=== PATIENT | male | born 1955 | race Caucasian/White ===

== ENCOUNTER 2018-08-04 07:52 | Inpatient (IN) | payer OTHER ==
[2018-08-04] MEDS ORDERED: HYDROmorphone HCL CARPU-JECT 2 MG/1 ML DISP.SYRIN IVPUSH ONE ×2 (08:42→10:46)
[2018-08-04] MEDS ORDERED: HYDROmorphone HCl 2 MG/ML VIAL ONE ×2 (08:53→10:47)
--- NOTE | 2018-08-04 09:00 | PDOC ---
Attending Attestation - Resident Resident Name: Elidia Richardson - ED Attending Attestation I have performed the following: I have examined & evaluated the patient, The case was reviewed & discussed with the resident, I agree w/resident's findings & plan, Exceptions are as noted - HPI HPI: 08/04/18 09:00 62-year-old male with past medical history of hypertension, bilateral hip replacements presents with dislocated right hip. Yesterday, patient reported that his hip dislocated. Started feel some paresthesias. They attempted to reduce the right hip at [facility] but was unsuccessful. The patient was transferred here to his orthopedist, Dr. Kanu Baez, for OR reduction. - Physicial Exam PE: 08/04/18 09:02 GENERAL: Awake, alert, and fully oriented, in no acute distress HEAD: No signs of trauma EYES: EOMI, sclera anicteric, conjunctiva clear ENT: Auricles normal inspection, hearing grossly normal, nares patent, Moist mucosa NECK: Normal ROM, supple EXTREMITIES: RLE: 2+ DP pulse Internally rotated and shortened. Reports subjective parasthesias along the right lower extremity. NEUROLOGICAL: Cranial nerves II through XII grossly intact. Normal speech, SKIN: Warm, Dry, normal turgor, no rashes or lesions noted. - Medical Decision Making 08/04/18 09:03 Vital Signs Temp Pulse Resp BP Pulse Ox 99.2 F 79 16 204/108 H 100 08/04/18 07:54 08/04/18 07:54 08/04/18 07:54 08/04/18 07:54 08/04/18 07:54 Pt with 2+ DP pulses Dislocated R prosthetic hip. To OR for OR reduction by Dr. Kanu Baez Heart Score/ECG Review #1 ECG reviewed & interpreted by me at: 08:10 08/04/18 08:59 NSR 75, no std/festus, normal axis, normal intervals, QTC 480 msec
--- NOTE | 2018-08-04 09:20 | PDOC ---
History of Present Illness - General Chief Complaint: Pain Stated Complaint: RT SIDE HIP DISLOCATION Time Seen by Provider: 08/04/18 08:05 - History of Present Illness Initial Comments: 62 year old male with HTN (non compliant currently) and right hip replacement ( with dislocation a few months a go) presenting with right hip pain and deformity that he believes is dislocated after films and attempted relocation at [facility] earlier today. States that it originally occurred earlier in the day when he attempted to bend over at a steep angle (which he is aware he shouldn't be doing) and felt something "give out" after which he went immediately to the floor, Denies any other pain or trauma. They attempted to reduce the hip in [facility] but were unsuccessful after which they contacted Dr. Baez (his orthopedic surgeon) and had him transferred to our facility for admission and OR reduction. Denies any fevers, chills, nausea, vomiting, skin breakage, or other symptoms. 08/04/18 11:19 Past History - Past Medical History Allergies/Adverse Reactions: Allergies Allergy/AdvReac Type Severity Reaction Status Date / Time No Known Allergies Allergy Verified 08/04/18 07:54 Home Medications: Ambulatory Orders Blood Pressure Kit Med,Large [Blood Pressure Monitor] 1 each MC DAILY #1 kit Chlorthalidone [Hygroton -] 25 mg PO DAILY #30 tablet 08/05/18 COPD: No HTN: Yes - Suicide/Smoking/Psychosocial Hx Smoking History: Never smoked Have you smoked in the past 12 months: No Information on smoking cessation initiated: No Hx Alcohol Use: No Drug/Substance Use Hx: No Review of Systems - Review of Systems Constitutional: No: Chills, Diaphoresis, Fever HEENTM: No: Eye Pain, Blurred Vision Respiratory: No: Cough, Orthopnea, Shortness of Breath Cardiac (ROS): No: Chest Pain, Irregular Heart Rate, Lightheadedness ABD/GI: No: Diarrhea, Nausea, Vomiting : No: Dysuria, Discharge, Frequency Musculoskeletal: Yes: Joint Pain, Muscle Pain Integumentary: No: Bruising, Change in Color, Flushing Neurological: No: Headache, Numbness, Paresthesia Psychiatric: No: Anxiety, Depression Hematologic/Lymphatic: No: Anemia, Blood Clots, Easy Bleeding *Physical Exam - Vital Signs Last Vital Signs Temp Pulse Resp BP Pulse Ox 99.2 F 79 16 204/108 H 100 08/04/18 07:54 08/04/18 07:54 08/04/18 07:54 08/04/18 07:54 08/04/18 07:54 - Physical Exam General Appearance: Yes: Nourished, Appropriately Dressed. No: Apparent Distress HEENT: positive: EOMI, OMAR, Normal ENT Inspection, Normal Voice Neck: positive: Trachea midline, Normal Thyroid, Supple. negative: Tender, Rigid Respiratory/Chest: positive: Lungs Clear, Normal Breath Sounds. negative: Chest Tender, Respiratory Distress, Accessory Muscle Use Cardiovascular: positive: Regular Rhythm, Regular Rate Gastrointestinal/Abdominal: positive: Normal Bowel Sounds, Flat, Soft. negative : Tender Lymphatic: negative: Adenopathy, Tenderness Musculoskeletal: positive: Decreased Range of Motion (right hip with slight shortening and palpable deformity at hip joint. Slightly decreased ROM secondary to pain. ). negative: Normal Inspection Extremity: positive: Normal Capillary Refill, Normal Inspection, Normal Range of Motion Integumentary: positive: Normal Color, Dry, Warm Neurologic: positive: Fully Oriented, Alert, Normal Mood/Affect, Normal Response , Motor Strength 5/5 Moderate Sedation - Procedure Monitoring Vital Signs: Procedure Monitoring Vital Signs Temperature 99.2 F 08/04/18 07:54 Pulse Rate 79 08/04/18 07:54 Respiratory Rate 16 08/04/18 07:54 Blood Pressure 204/108 H 08/04/18 07:54 O2 Sat by Pulse Oximetry (%) 100 08/04/18 07:54 ED Treatment Course - LABORATORY CBC & Chemistry Diagram: 08/05/18 05:30 08/05/18 05:30 - RADIOLOGY Radiology Studies Ordered: Category Date Time Status CHEST PA & LAT [RAD] Stat Radiology 08/04/18 08:46 Ordered HIP & PELVIS-LEFT [RAD] Stat Radiology 08/04/18 08:44 Ordered - Medications Given in the ED: ED Medications Discontinued Medications Generic Name Dose Route Start Last Admin Trade Name Freq PRN Reason Stop Dose Admin Hydromorphone HCl 1 mg 08/04/18 08:42 08/04/18 09:00 Dilaudid Injection - IVPUSH 08/04/18 08:43 1 mg ONCE ONE Administration Medical Decision Making - Medical Decision Making 62 year old male with right hip replacement presenting iwth right hip dislocation with failed attempt at OSH at reduction and need for admission/ OR fixation. I spoke to Popeye Baez who will schedule the procedure under his son Kanu Baez and would like the patient admitted to the hospitalist service. Originally we consulted admitting physician (Dr. Finch) who felt uncomfortable taking the patient and we then got in touch with the hospitalist covering physician who agreed to take the admission. Preop labs/ workup sent and films taken. *DC/Admit/Observation/Transfer Diagnosis at time of Disposition: Hip dislocation, right Qualifiers: Encounter type: initial encounter Qualified Code(s): S73.004A - Unspecified dislocation of right hip, initial encounter - Discharge Dispostion Disposition: HOME Condition at time of disposition: Stable Decision to Admit order Date/Time: Decision to Admit Order Category Date Time Status Decision to Admit to Hospital Routine Admission 08/04/18 08:53 Active - Prescriptions - Referrals - Patient Instructions - Post Discharge Activity
[2018-08-04 09:37] LABS: BASO % 0.3 % (0-2.0); EOS % 0.2 % (0-4.5); HEMATOCRIT 44.1 % (35.4-49); HEMOGLOBIN 15.3 GM/dL (11.7-16.9); LYMPH % 15.4 % (8-40); MCH 33.4 pg (25.7-33.7); MCHC 34.6 g/dl (32.0-35.9); MEAN CELL VOLUME 96.5 fl (80-96); MEAN PLT VOLUME 7.5 fl (7.5-11.1); MONO % 9.4 % (3.8-10.2); NEUT % 74.7 % (42.8-82.8); PLATELET COUNT 263 K/MM3 (134-434); RBC 4.57 M/mm3 (4.00-5.60); RDW 13.3 % (11.9-15.9); WHITE BLOOD COUNT 6.8 K/mm3 (4.0-10.0)
[2018-08-04 09:40] LABS: INR 1.04 (0.83-1.09); PROTHROMBIN TIME (PATIENT) 12.3 SEC (9.7-13.0)
[2018-08-04 09:49] LABS: ALBUMIN 3.9 g/dl (3.4-5.0); ALK PHOS 125 U/L (45-117); ANION GAP 8 MMOL/L (8-16); BILIRUBIN,TOTAL 0.7 mg/dL (0.2-1); BLOOD UREA NITROGEN 6 mg/dL (7-18); CALCIUM 8.5 mg/dL (8.5-10.1); CHLORIDE 103 mmol/L (98-107); CO2 28 mmol/L (21-32); CREATININE 0.7 mg/dL (0.55-1.3); GLUCOSE,RANDOM 98 mg/dL (74-106); POTASSIUM 4.3 mmol/L (3.5-5.1); SGOT/AST 24 U/L (15-37); SGPT/ALT 21 U/L (13-61); SODIUM 139 mmol/L (136-145); TOT PROT 7.2 g/dl (6.4-8.2)
--- NOTE | 2018-08-04 10:27 | EKG ---
Test Reason : Blood Pressure : / mmHG Vent. Rate : 075 BPM Atrial Rate : 075 BPM P-R Int : 176 ms QRS Dur : 098 ms QT Int : 430 ms P-R-T Axes : 011 046 048 degrees QTc Int : 480 ms NORMAL SINUS RHYTHM PROLONGED QT ABNORMAL ECG NO PREVIOUS ECGS AVAILABLE Confirmed by CRISTOPHER JACKSON MD ([id number]) on 08/04/2018 10:27:10 AM Referred By: Confirmed By:CRISTOPHER JACKSON MD
[2018-08-04 12:09] VITALS: BMI 28.4
[2018-08-04] MEDS ORDERED: IBUPROFEN 400 MG TABLET (FP) PO PRN (13:16)
[2018-08-04] MEDS ORDERED: BISACODYL 5 MG TABLET.DR (FP) PO PRN ×2 (13:16→16:03)
[2018-08-04] MEDS ORDERED: morphine SULFATE/PF 30 MG/30 ML *PCA* DISP.SYRIN PCA SCH ×3 (13:30→15:00)
[2018-08-04] MEDS ORDERED: PROPOFOL 20 ML ONE (15:11)
[2018-08-04] MEDS ORDERED: MIDAZOLAM HCL 2 MG/2 ML SINGLE DOSE VIAL ONE (15:11)
[2018-08-04] MEDS ORDERED: SUCCINYLCHOLINE CHLORIDE 200 MG/10 ML VIAL ONE (15:11)
[2018-08-04] MEDS ORDERED: LACTATED RINGERS SOLUTION 1,000 ML IV SCH ×4 (15:45→16:03)
[2018-08-04] MEDS ORDERED: hydrALAZINE HCL 20 MG/ML VIAL ONE (15:48)
[2018-08-04] MEDS ORDERED: hydrALAZINE HCL 20 MG/ML VIAL IVPUSH ONE ×2 (15:49→16:03)
[2018-08-04] MEDS ORDERED: ONDANSETRON 4 MG/2 ML VIAL IVPUSH PRN ×2 (15:54→16:03)
--- NOTE | 2018-08-04 16:02 | PN ---
Progress Note (short form) - Note Progress Note: CONSULTATION 62M p/w closed RIGHT ERASTO dislocation. Pt. reports (+) R hip pain. Hx. of 1 x prior closed right ERASTO dislocation. Pt. has right hip abduction brace at home. No change in PMH, PSH, Family Hx., Social Hx., Medications, Medication Allergies , & ROS. All labs and vitals reviewed. PE: AAO x 3, NAD. Confined to bed d/t inability to ambulate. Right Hip: Short RLE, adducted, internally rotated. NVI distally. 62M p/w closed RIGHT ERASTO dislocation. -Pain control. -DVT PPx: - Mechanical only: IMELDA's, SCD's. -NPO, IVF. -Pre-op for closed reduction right ERASTO under general anaesthesia. -Will follow. Kanu Baez MD (Orthopaedic Surgery).
--- NOTE | 2018-08-04 16:17 | PN ---
Progress Note (short form) - Note Progress Note: CONSULTATION 62M s/p closed reduction RIGHT ERASTO dislocation POD #0. -Pain control. -DVT PPx: - Mechanical only: IMELDA's, SCD's. -Incentive spirometry. -Hip abduction pillow & brace. -PT/OT/Rehab, OOB. -WBAT RLE. -Care per medical hospitalist team. -Discharge: home. -Follow-up w/[facility] outpatient clinic within 1 week of discharge: . Kanu Baez MD (Orthopaedic Surgery).
[2018-08-04] MEDS: oxyCODONE HCL 5 MG TABLET PO PRN ×2 (17:14→23:18)
[2018-08-04] MEDS: ACETAMINOPHEN 325 MG TABLET (FP) PO PRN ×2 (17:15→23:17)
--- NOTE | 2018-08-04 18:08 | HP ---
CHIEF COMPLAINT:hip got displaced PCP: HISTORY OF PRESENT ILLNESS: He is a 62 Y/O M W HTN non adherent to medication, S/P hip replacement complicated with dislocation, He was evaluated by ortho and is now SP closed reduction He was also found to have HTN, states that has been diagnosed couple of years ago and was on meds for couple of months but he stopped them years ago. He states that he had unlimited ET with no cardiopulmonary complains. Also states that had TTE and is aware of the murmur he has. He is also active smoker, 3-4 cig day for 1 year. ER course was notable for: (1) close hip reduction by ortho. Recent Travel: PAST MEDICAL HISTORY: PAST SURGICAL HISTORY: Social History: Smoking: Alcohol: Drugs: Family History: Allergies No Known Allergies Allergy (Verified 08/04/18 07:54) HOME MEDICATIONS: Home Medications Medication Instructions Recorded NK [No Known Home Medication] 08/04/18 REVIEW OF SYSTEMS CONSTITUTIONAL: Absent: fever, chills, diaphoresis, generalized weakness, malaise, loss of appetite, weight change HEENT: Absent: rhinorrhea, nasal congestion, throat pain, throat swelling, difficulty swallowing, mouth swelling, ear pain, eye pain, visual changes CARDIOVASCULAR: Absent: chest pain, syncope, palpitations, irregular heart rate, lightheadedness , peripheral edema RESPIRATORY: Absent: cough, shortness of breath, dyspnea with exertion, orthopnea, wheezing, stridor, hemoptysis GASTROINTESTINAL: Absent: abdominal pain, abdominal distension, nausea, vomiting, diarrhea, constipation, melena, hematochezia GENITOURINARY: Absent: dysuria, frequency, urgency, hesitancy, hematuria, flank pain, genital pain MUSCULOSKELETAL: + Hip pain which has improved after reduction. SKIN: Absent: rash, itching, pallor HEMATOLOGIC/IMMUNOLOGIC: Absent: easy bleeding, easy bruising, lymphadenopathy, frequent infections ENDOCRINE: Absent: unexplained weight gain, unexplained weight loss, heat intolerance, cold intolerance NEUROLOGIC: Absent: headache, focal weakness or paresthesias, dizziness, unsteady gait, seizure, mental status changes, bladder or bowel incontinence PSYCHIATRIC: Absent: anxiety, depression, suicidal or homicidal ideation, hallucinations. PHYSICAL EXAMINATION Vital Signs - 24 hr 08/04/18 08/04/18 08/04/18 07:54 08:00 08:53 Temperature 99.2 F Pulse Rate 79 Pulse Rate [ Right Radial] Respiratory 16 18 Rate Blood Pressure 204/108 H Blood Pressure [Right Arm] O2 Sat by Pulse 100 98 98 Oximetry (%) 08/04/18 08/04/18 08/04/18 11:03 12:07 15:33 Temperature 98.3 F 98.2 F Pulse Rate 68 65 Pulse Rate [ 69 Right Radial] Respiratory 18 18 14 Rate Blood Pressure 153/105 H 179/99 H Blood Pressure 186/99 H [Right Arm] O2 Sat by Pulse 98 98 Oximetry (%) 08/04/18 08/04/18 08/04/18 15:50 16:05 16:20 Temperature Pulse Rate 65 66 67 Pulse Rate [ Right Radial] Respiratory 16 18 18 Rate Blood Pressure 187/104 H 175/100 H 169/91 Blood Pressure [Right Arm] O2 Sat by Pulse 97 97 99 Oximetry (%) 08/04/18 08/04/18 16:35 17:24 Temperature 98.8 F 98.8 F Pulse Rate 67 70 Pulse Rate [ Right Radial] Respiratory 18 20 Rate Blood Pressure 174/93 H 185/105 H Blood Pressure [Right Arm] O2 Sat by Pulse 99 Oximetry (%) GENERAL: Awake, alert, and fully oriented, in mild distress due to pain HEAD: Normal with no signs of trauma. EYES: Pupils equal, round and reactive to light, extraocular movements intact, sclera anicteric, conjunctiva clear. No lid lag. EARS, NOSE, THROAT: Ears normal, nares patent, oropharynx clear without exudates. Moist mucous membranes. NECK: Normal range of motion, supple without lymphadenopathy, JVD, or masses. LUNGS: Breath sounds equal, clear to auscultation bilaterally. No wheezes, and no crackles. No accessory muscle use. HEART: Regular rate and rhythm, normal S1 and S2 + murmur, rub or gallop. ABDOMEN: Soft, nontender, not distended, normoactive bowel sounds, no guarding, no rebound, no masses. No hepatomegaly or splenomegaly. MUSCULOSKELETAl: Lower EXT is in pillow UPPER EXTREMITIES: 2+ pulses, warm, well-perfused. No cyanosis. No clubbing. No peripheral edema. LOWER EXTREMITIES: 2+ pulses, warm, well-perfused. No calf tenderness. No peripheral edema. NEUROLOGICAL: Cranial nerves II-XII intact. Normal speech. Normal gait. PSYCHIATRIC: Cooperative. Good eye contact. Appropriate mood and affect. SKIN: Warm, dry, normal turgor, no rashes or lesions noted, normal capillary refill. Laboratory Results - last 24 hr 08/04/18 08/04/18 08/04/18 09:02 09:02 09:02 WBC 6.8 RBC 4.57 Hgb 15.3 Hct 44.1 MCV 96.5 H MCH 33.4 MCHC 34.6 RDW 13.3 Plt Count 263 MPV 7.5 Absolute Neuts (auto) 5.0 Neutrophils % 74.7 Lymphocytes % 15.4 Monocytes % 9.4 Eosinophils % 0.2 Basophils % 0.3 Nucleated RBC % 0 PT with INR 12.30 INR 1.04 Sodium 139 Potassium 4.3 Chloride 103 Carbon Dioxide 28 Anion Gap 8 BUN 6 L Creatinine 0.7 Creat Clearance w eGFR > 60 Random Glucose 98 Calcium 8.5 Total Bilirubin 0.7 AST 24 ALT 21 Alkaline Phosphatase 125 H Total Protein 7.2 Albumin 3.9 Blood Type Antibody Screen 08/04/18 09:02 WBC RBC Hgb Hct MCV MCH MCHC RDW Plt Count MPV Absolute Neuts (auto) Neutrophils % Lymphocytes % Monocytes % Eosinophils % Basophils % Nucleated RBC % PT with INR INR Sodium Potassium Chloride Carbon Dioxide Anion Gap BUN Creatinine Creat Clearance w eGFR Random Glucose Calcium Total Bilirubin AST ALT Alkaline Phosphatase Total Protein Albumin Blood Type O POSITIVE Antibody Screen Negative ASSESSMENT/PLAN: He is a 62 Y/O M W HTN non adherent to medication, S/P hip replacement complicated with dislocation, He was evaluated by ortho and is now SP closed reduction He was also found to have HTN, states that has been diagnosed couple of years ago and was on meds for couple of months but he stopped them years ago. He states that he had unlimited ET with no cardiopulmonary complains. Also states that had TTE and is aware of the murmur he has. Hip dislocation S/P closed reduction is to be DCed home tomorrow with the braalondra Pian control with percocet Will C/W bowel regimen. HTN: Cardiac murmur: will start on thiazide, he has HX of being evaluated by cardiology and was informed that he has to follow up with them, has no cardiopulmonary complaints. He is also active smoker, 3-4 cig day for 1 year.: counseled about importance of quitting DVT PPX: Lovenox SQ Diet: cardiac Dispo": home Visit type - Emergency Visit Emergency Visit: Yes ED Registration Date: 08/04/18 Care time: The patient presented to the Emergency Department on the above date and was hospitalized for further evaluation of their emergent condition. - New Patient This patient is new to me today: No - Critical Care Critical Care patient: No
[2018-08-04] MEDS ORDERED: PT OWN MED DRAWER 7, Y5N ONE (19:30)
[2018-08-04] MEDS: CHLORTHALIDONE 25 MG TABLET PO SCH (19:31)
--- NOTE | 2018-08-04 20:42 | OP ---
Date of Operation: 08/04/2018 Surgeon: Kanu Baez M.D. Sales Representative Leather Goods: None. Pre-Operative Diagnosis: Closed dislocation of right total hip replacement. Post-Operative Diagnosis: Closed dislocation of right total hip replacement. Surgical Procedure: Closed reduction of dislocated right total hip replacement. Findings: None. Anaesthesia: General. Position: Supine. Incision: None. Estimated Blood Loss: 0cc. Intravenous Fluid: 250cc crystalloid. Specimens: None. Drains: None. Complications: None. Urine output: None. Bacteriology: None. Transfusions: None. Closure: None. Indications: The patient was indicated for a closed reduction of his dislocated right total hip replacement in order to restore motion and mobilization, and to prevent the complications associated with a sedentary lifestyle. The patient was identified in the holding area by his armband. A long discussion was held with the patient (in the presence of his ) regarding the risks, benefits and alternatives of the above named procedure. Risks include but are not limited to: pain, bleeding, infection, damage to surrounding structures (including nerves, blood vessels, skin, ligaments, tendons and bone), wound complications, failure of hardware/implants/reduction, need for further surgery, blood clots, myocardial infarction, pulmonary embolism , cerebrovascular insult, anaesthesia complications, compartment syndrome, limb loss, limp, loss of function, and . Benefits as mentioned above. Alternatives include no surgery. All questions were answered. The patient understood and agreed to the procedure. Informed consent was obtained, witnessed and verified. The patients correct operative limb - that is the right lower extremity - was marked, and the patient was taken to the operating room after being seen by the anesthesia and nursing staff. Procedure: The patient was brought into the operating room, placed on the OR table and secured with a safety strap. Consent and the operative site were again verified with the patient and nursing and anaesthesia staff. Anaesthesia was administered without complication. A time out was done, led by me the attending surgeon. A pre-operative orthpaedic exam revealed that the right lower extremity was shortened, adducted at the hip, and internally rotated. Using gentle traction, a closed reduction of the right hip was performed. It was immediately evidence that leg length was restored and rotational alignment of the right limb was restored. The hip was taken through a range of motion and found to be stable. A standard AP-hip fluoroscopic x-ray was taken demonstrating good overall alignment with a well reduced, congruent hip. There was no evidence of subsidence, loosening, or gabriela-prosthetic fracture. A hip abduction pillow was applied. The sponge and needle counts were correct at the end of the case and the attending was present and scrubbed throughout the case. The patient was then transferred into a supine position and onto the hospital bed. The patient was then was then transferred to the recovery room without incident/ complications and in stable condition, having tolerated the procedure well. Kanu Baez MD [id number] MTDD
[2018-08-04] MEDS ORDERED: HEPARIN NA (PORCINE) 5,000 UNITS/ML 1ML VIAL SQ SCH (22:00)
[2018-08-05] MEDS: ACETAMINOPHEN 325 MG TABLET (FP) PO PRN ×2 (05:37→10:14)
[2018-08-05] MEDS: oxyCODONE HCL 5 MG TABLET PO PRN ×2 (05:37→10:13)
[2018-08-05 07:35] LABS: HEMATOCRIT 41.6 % (35.4-49); HEMOGLOBIN 14.6 GM/dL (11.7-16.9); MCH 33.5 pg (25.7-33.7); MCHC 35.1 g/dl (32.0-35.9); MEAN CELL VOLUME 95.3 fl (80-96); MEAN PLT VOLUME 7.8 fl (7.5-11.1); PLATELET COUNT 234 K/MM3 (134-434); RBC 4.36 M/mm3 (4.00-5.60); RDW 13.2 % (11.9-15.9); WHITE BLOOD COUNT 6.1 K/mm3 (4.0-10.0)
[2018-08-05 07:44] LABS: INR 1.07 (0.83-1.09); PROTHROMBIN TIME (PATIENT) 12.6 SEC (9.7-13.0)
[2018-08-05 08:01] LABS: ANION GAP 8 MMOL/L (8-16); BLOOD UREA NITROGEN 8 mg/dL (7-18); CALCIUM 8.2 mg/dL (8.5-10.1); CHLORIDE 104 mmol/L (98-107); CO2 28 mmol/L (21-32); CREATININE 0.6 mg/dL (0.55-1.3); GLUCOSE,RANDOM 87 mg/dL (74-106); MAGNESIUM 1.7 mg/dL (1.8-2.4); POTASSIUM 3.9 mmol/L (3.5-5.1); SODIUM 140 mmol/L (136-145)
[2018-08-05] MEDS ORDERED: MAGNESIUM OXIDE 400 MG TABLET (FP) PO ONE (08:06)
[2018-08-05] MEDS ORDERED: PT OWN MED DRAWER 7, Y5N ONE (09:12)
[2018-08-05] MEDS: CHLORTHALIDONE 25 MG TABLET PO SCH (09:19)
[2018-08-05] MEDS ORDERED: PANTOPRAZOLE 40 MG TABLET (FP) PO SCH ×2 (10:00)
[2018-08-05 10:29] VITALS: TEMP 98.6
[2018-08-05 11:11] VITALS: BP 159/98; PULSE 70
--- NOTE | 2018-08-05 11:50 | DS ---
Physical Exam: SUBJECTIVE: Patient seen and examined. wants to go home. OBJECTIVE: Vital Signs Period Temp Pulse Resp BP Sys/Jung Pulse Ox Last 24 Hr 97.8 F-98.8 F 65-71 14-20 143-187/91-106 97-99 PHYSICAL EXAM GENERAL: The patient is awake, alert, and fully oriented, in no acute distress. HEAD: Normal with no signs of trauma. EYES: PERRL, extraocular movements intact, sclera anicteric, conjunctiva clear. ENT: Ears normal, nares patent, oropharynx clear without exudates, moist mucous membranes. NECK: Trachea midline, full range of motion, supple. LUNGS: Breath sounds equal, clear to auscultation bilaterally, no wheezes, no crackles, no accessory muscle use. HEART: Regular rate and rhythm, S1, S2 without murmur, rub or gallop. ABDOMEN: Soft, nontender, nondistended, normoactive bowel sounds, no guarding, no rebound, no hepatosplenomegaly, no masses. EXTREMITIES: 2+ pulses, warm, well-perfused, no edema. NEUROLOGICAL: Normal speech, steady gait. denies pain PSYCH: Normal mood, normal affect. SKIN: Warm, dry, normal turgor, no rashes or lesions noted. LABS Laboratory Results - last 24 hr 08/04/18 08/05/18 08/05/18 18:00 05:30 05:30 WBC 6.1 RBC 4.36 Hgb 14.6 Hct 41.6 MCV 95.3 MCH 33.5 MCHC 35.1 RDW 13.2 Plt Count 234 MPV 7.8 PT with INR 12.60 INR 1.07 Sodium Potassium Chloride Carbon Dioxide Anion Gap BUN Creatinine Creat Clearance w eGFR Random Glucose Calcium Magnesium Blood Type O POSITIVE 08/05/18 05:30 WBC RBC Hgb Hct MCV MCH MCHC RDW Plt Count MPV PT with INR INR Sodium 140 Potassium 3.9 Chloride 104 Carbon Dioxide 28 Anion Gap 8 BUN 8 Creatinine 0.6 Creat Clearance w eGFR > 60 Random Glucose 87 Calcium 8.2 L Magnesium 1.7 L Blood Type HOSPITAL COURSE: Date of Admission:08/04/18 Date of Discharge: 08/05/18 HOSPITAL COURSE: 62 year old male with HTN (non compliant currently) and right hip replacement ( with dislocation a few months a go) presenting with right hip pain and deformity that he believes is dislocated He was evaluated by ortho and is now SP closed reduction He was also found to have uncontrolled hypertension. States he has been diagnosed couple of years ago and was on meds for couple of months but he stopped them years ago. He has no cardiopulmonary complains. Cleared by surgery for discharge home. Patient started on cardiac medications and a BP device and both have been called to his pharmacy. He is advised to follow up with a washery engineer on discharged. DISCHARGE: Home Minutes to complete discharge: 60 Discharge Summary Reason For Visit: CLOSED RT SIDE HIP DISLOCATION Condition: Stable - Instructions Diet, Activity, Other Instructions: Mr. Mesa: You were admitted to [facility] for a closed right side hip dislocation and had a closed reduction of this dislocation on 08/04/2018. On admission, we also noted that your blood pressure was elevated and we have started you on medications. Here is our recommendations: Right Hip dislocation: Continue pain control medications as per Dr. Baez Continue the incentive spirometer at least 4 times in 1 hour Continue the hip abduction pillow and Brace Please follow up henry/[facility] outpatient clinic within 1 week of discharge: . High blood pressure: It is important that you control your blood pressure as it is a risk factor for strokes. We have called in a new medication to your pharmacy called Chlorthalidone 25mg. Take this daily in the morning. You will need to see a washery engineer. We have referred you to one, or you can see the one you have seen in the past. I have called in a blood pressure monitor to your pharmacy so that you can monitor your blood pressures at home. Write down what your BP is daily and keep track of it. This will help your doctors decide if you need your medications adjusted. Thank you for allowing us to care for you. Referrals: Flynn Reddy [Primary Care Provider] - Godfrey Barclay MD [Staff Physician] - Disposition: HOME - Home Medications Comprehensive Discharge Medication List: Ambulatory Orders Blood Pressure Kit Merrill Vaca [Blood Pressure Monitor] 1 each MC DAILY #1 kit Chlorthalidone [Hygroton -] 25 mg PO DAILY #30 tablet 08/05/18 This patient is new to me today: Yes Date on this admission: 08/05/18 Emergency Visit: Yes ED Registration Date: 08/04/18 Care time: The patient presented to the Emergency Department on the above date and was hospitalized for further evaluation of their emergent condition. Critical Care patient: No - Discharge Referral Referred to [facility] No
--- NOTE | 2018-08-05 13:03 | PN ---
Progress Note (short form) - Note Progress Note: Anesthesia post op note 62 y/o M s/p ga for closed reduction, right hip dislocation, seen earlier today. POD#1, vss, aoox3, no complaints. No anesthesia complications.
== END 2018-08-05 12:09 | disposition home or self-care (01) | DRG 561 ==
LOC: JER 07:52 → JERBED 08:53 → J8W 11:46
PROVIDERS: ADMIT Internal Medicine; ATTEND Nurse Practitioner Family
PROC: 0SW9XJZ Revision of Synthetic Substitute in Right Hip Joint, External Approach (ICD-10-PCS; principal; 2018-08-04 15:00)
DX: T84.020A Dislocation of internal right hip prosthesis, initial encounter (principal); Z91.14 Patient's other noncompliance with medication regimen; R01.1 Cardiac murmur, unspecified; I10 Essential (primary) hypertension; Y83.8 Other surgical procedures as the cause of abnormal reaction of the patient, or of later complication, without mention of misadventure at the time of the procedure
CPT/HCPCS: 36415; 71045-TC-FY; 73502-TC-RT-FY; 76000-TC-FY; 80048; 80053; 83735; 85025; 85027; 85610; 86850; 86900; 86901; 93005; 93010; 94760; 97116-GP; 97161-GP; 99283-25

== ENCOUNTER 2020-05-18 07:03 | Day surgery (SDC) | payer OTHER ==
[2020-05-10 12:18] VITALS: BMI 27.8
[2020-05-18] MEDS ORDERED: MIDAZOLAM HCL 2 MG/2 ML SINGLE DOSE VIAL ONE ×2 (08:00→08:17)
[2020-05-18] MEDS ORDERED: DEXAMETHASONE SOD PHOSPHATE 4 MG/1 ML VIAL ONE (08:00)
[2020-05-18] MEDS ORDERED: PROPOFOL 20 ML ONE ×3 (08:00→10:46)
[2020-05-18] MEDS ORDERED: LIDOCAINE HCL/PF 2% SDV 5ML VIAL ONE (08:00)
[2020-05-18] MEDS ORDERED: ONDANSETRON 4 MG/2 ML VIAL ONE (08:00)
[2020-05-18] MEDS ORDERED: SUCCINYLCHOLINE CHLORIDE 200 MG/10 ML SYRINGE ONE (08:09)
[2020-05-18] MEDS ORDERED: ROPIVACAINE HCL 0.5% 30ML VIAL ONE (08:17)
[2020-05-18] MEDS ORDERED: ceFAZolin SODIUM 1 GM VIAL ONE (08:56)
[2020-05-18] MEDS ORDERED: oxyCODONE HCL 5 MG TABLET PO PRN ×2 (11:25)
[2020-05-18] MEDS ORDERED: ONDANSETRON 4 MG/2 ML VIAL IVPUSH PRN (11:25)
[2020-05-18] MEDS ORDERED: LACTATED RINGERS SOLUTION 1,000 ML IV SCH (11:30)
[2020-05-18 12:46] VITALS: TEMP 98
[2020-05-18 13:22] VITALS: BP 129/85; PULSE 79
== END 2020-05-18 13:22 | disposition home or self-care (01) ==
LOC: FASU 07:03
PROVIDERS: ATTEND Orthopaedic Surgery Hand Surgery
PROC: 0PBM0ZZ Excision of Right Carpal, Open Approach (ICD-10-PCS; 2020-05-18)
PROC: 015 Peripheral Nervous System, Destruction (ICD-10-PCS; 2020-05-18)
PROC: 0RGN07Z Fusion of Right Wrist Joint with Autologous Tissue Substitute, Open Approach (ICD-10-PCS; principal; 2020-05-18 09:07)
DX: M19.031 Primary osteoarthritis, right wrist (principal)
CPT/HCPCS: 25810; 64772; C1713; 73110-TC-RT-FY; 94760

== ENCOUNTER 2021-09-20 08:29 | Inpatient (IN) | payer OTHER ==
[2021-09-19 16:32] VITALS: BMI 27.8
[2021-09-20] MEDS ORDERED: BUPIVACAINE LIPOSOME/PF (EXPAREL) 266 MG/20 ML VIAL ONE (12:02)
[2021-09-20] MEDS ORDERED: DEXMEDETOMIDINE HCL 200 MCG/2 ML IVPB ONE (12:02)
[2021-09-20] MEDS ORDERED: BUPIVACAINE HCL/PF 0.5% (5 MG/ML) 30 ML VIAL IJ ONE (12:02)
[2021-09-20] MEDS ORDERED: PROPOFOL 20 ML ONE ×18 (12:04→21:38)
[2021-09-20] MEDS ORDERED: MIDAZOLAM HCL 2 MG/2 ML SINGLE DOSE VIAL ONE ×3 (12:04→17:56)
[2021-09-20] MEDS ORDERED: HEPARIN NA (PORCINE) 5,000 UNITS/ML 1ML VIAL ONE (13:56)
[2021-09-20] MEDS ORDERED: KETAMINE HCL 200 MG/20 ML VIAL ONE (14:01)
[2021-09-20] MEDS ORDERED: HYDROmorphone HCL/PF 1 MG/ML VIAL ONE ×4 (16:59→21:29)
[2021-09-20] MEDS ORDERED: BENZOIN/ALOE VERA/STORAX/TOLU 30 ML TINCTURE ONE (20:47)
[2021-09-20] MEDS ORDERED: MAGNESIUM HYDROX 2400MG/30ML ORAL SUSPENSION 30 ML CUP PO PRN (22:42)
[2021-09-20] MEDS ORDERED: ONDANSETRON 4 MG/2 ML VIAL IVPUSH PRN ×2 (22:42→22:43)
[2021-09-20] MEDS ORDERED: MAG HYDROX/AL HYDROX/SIMETH 30 ML UNIT-DOSE CUP PO PRN (22:42)
[2021-09-20] MEDS ORDERED: ACETAMINOPHEN 1000 MG/100 ML BAG IVPB ONE (22:44)
[2021-09-20] MEDS ORDERED: oxyCODONE HCL 5 MG TABLET PO PRN (22:44)
[2021-09-20] MEDS ORDERED: LACTATED RINGERS SOLUTION 1,000 ML IV SCH (22:45)
[2021-09-20] MEDS ORDERED: CHOLECALCIFEROL (VIT D3) 5000 UNITS (125 MCG) CAP PO SCH ×2 (22:45)
[2021-09-20] MEDS ORDERED: ACETAMINOPHEN INJECTION 100 ML IVPB ONE (22:52)
[2021-09-20] MEDS ORDERED: HYDROmorphone HCl 2 MG/ML VIAL ONE (22:54)
[2021-09-20] MEDS: HYDROmorphone HCL CARPU-JECT 1 MG/1 ML DISP.SYRIN IVPUSH PRN ×4 (22:55→23:25)
[2021-09-20] MEDS: oxyCODONE HCL 5 MG TABLET PO PRN (23:35)
[2021-09-21] MEDS: ACETAMINOPHEN 500 MG TABLET (FP) PO SCH ×5 (00:49→22:03)
[2021-09-21] MEDS: LACTATED RINGERS SOLUTION 1,000 ML IV SCH ×2 (00:50→22:59)
[2021-09-21] MEDS: oxyCODONE HCL 5 MG TABLET PO PRN (02:33)
[2021-09-21] MEDS: CEFAZOLIN 2 GM in DEXTROSE 5%-WATER - 50 ML IVPB SCH ×3 (04:00→16:45)
[2021-09-21] MEDS ORDERED: ceFAZolin SODIUM 1 GM VIAL ONE ×3 (05:19→16:37)
[2021-09-21] MEDS ORDERED: DEXTROSE 5%-WATER - 50 ML IVPB ONE ×3 (05:19→16:37)
[2021-09-21] MEDS: HYDROmorphone HCl 2 MG/ML VIAL IVPB PRN ×5 (05:48→22:02)
[2021-09-21] MEDS ORDERED: CHOLECALCIFEROL (VIT D3 5000 UNITS) 125 MCG TAB PO SCH (07:23)
[2021-09-21 08:14] LABS: CALCIUM 8.5 mg/dl (8.5-10); CREATININE 0.8 mg/dl (0.55-1.3)
[2021-09-21 09:26] LABS: HEMATOCRIT 26.4 % (35.4-49); MCH 32.4 pg (25.7-33.7); MEAN CELL VOLUME 95.1 fl (80-96); MEAN PLT VOLUME 7.9 fl (7.5-11.1); PLATELET COUNT 314 10^3/uL (134-434); RBC 2.77 M/mm3 (4.00-5.60); RDW 12.8 % (11.9-15.9); WHITE BLOOD COUNT 10.3 K/mm3 (4.0-10.0)
[2021-09-21] MEDS: PANTOPRAZOLE 40 MG TABLET PO SCH (09:36)
[2021-09-21] MEDS: HYDROCHLOROTHIAZIDE 25 MG TABLET (FP) PO SCH (09:36)
[2021-09-21] MEDS: amLODIPine BESYLATE 10 MG TABLET (FP) PO SCH (09:36)
[2021-09-21] MEDS: CELECOXIB 200 MG CAPSULE PO SCH ×2 (09:36→22:58)
[2021-09-21] MEDS: LISINOPRIL 20 MG TABLET PO SCH (09:36)
[2021-09-21] MEDS: SENNOSIDES/DOCUSATE COMBO (SENNA PLUS) TABLET (UD) PO SCH ×2 (09:44→22:58)
[2021-09-21] MEDS: ASPIRIN 325 MG TABLET PO SCH ×2 (09:45→22:58)
[2021-09-22] MEDS: ACETAMINOPHEN 500 MG TABLET (FP) PO SCH ×4 (04:00→21:54)
[2021-09-22] MEDS: oxyCODONE HCL 5 MG TABLET PO PRN ×4 (04:01→21:53)
[2021-09-22 08:32] LABS: HEMATOCRIT 23.8 % (35.4-49); HEMOGLOBIN 8.1 GM/dL (11.7-16.9); MCH 32.3 pg (25.7-33.7); MCHC 34.2 g/dl (32.0-35.9); MEAN CELL VOLUME 94.4 fl (80-96); MEAN PLT VOLUME 7.8 fl (7.5-11.1); PLATELET COUNT 252 10^3/uL (134-434); RBC 2.52 M/mm3 (4.00-5.60); RDW 12.9 % (11.9-15.9); WHITE BLOOD COUNT 8.4 K/mm3 (4.0-10.0)
[2021-09-22] MEDS: HYDROmorphone HCl 2 MG/ML VIAL IVPB PRN (08:56)
[2021-09-22] MEDS: PANTOPRAZOLE 40 MG TABLET PO SCH (09:53)
[2021-09-22] MEDS: SENNOSIDES/DOCUSATE COMBO (SENNA PLUS) TABLET (UD) PO SCH ×2 (09:53→21:14)
[2021-09-22] MEDS: HYDROCHLOROTHIAZIDE 25 MG TABLET (FP) PO SCH (09:53)
[2021-09-22] MEDS: CELECOXIB 200 MG CAPSULE PO SCH ×2 (09:53→21:13)
[2021-09-22] MEDS: ASPIRIN COATED 81 MG TABLET.EC PO SCH ×2 (09:53→21:13)
[2021-09-22] MEDS: LISINOPRIL 20 MG TABLET PO SCH (09:54)
[2021-09-22] MEDS: amLODIPine BESYLATE 10 MG TABLET (FP) PO SCH (09:54)
[2021-09-22] MEDS ORDERED: ASPIRIN 81 MG CHEWABLE TABLETS PO SCH (10:00)
[2021-09-22] MEDS ORDERED: FUROSEMIDE 40 MG/4 ML INJECTABLE VIAL IVPUSH ONE (16:00)
[2021-09-22] MEDS: LACTATED RINGERS SOLUTION 1,000 ML IV SCH (23:57)
[2021-09-23] MEDS: oxyCODONE HCL 5 MG TABLET PO PRN ×4 (03:56→21:52)
[2021-09-23] MEDS: ACETAMINOPHEN 500 MG TABLET (FP) PO SCH ×3 (03:57→17:42)
[2021-09-23] MEDS ORDERED: CHOLECALCIFEROL (VIT D3 5000 UNITS) 125 MCG TAB PO SCH ×2 (06:30→07:00)
[2021-09-23] MEDS: SENNOSIDES/DOCUSATE COMBO (SENNA PLUS) TABLET (UD) PO SCH ×2 (09:08→21:51)
[2021-09-23] MEDS: PANTOPRAZOLE 40 MG TABLET PO SCH (09:08)
[2021-09-23] MEDS: ASPIRIN COATED 81 MG TABLET.EC PO SCH ×2 (09:12→21:52)
[2021-09-23] MEDS: amLODIPine BESYLATE 10 MG TABLET (FP) PO SCH (09:13)
[2021-09-23] MEDS: LISINOPRIL 20 MG TABLET PO SCH (09:22)
[2021-09-23 09:55] LABS: HEMATOCRIT 32.3 % (35.4-49); MCH 31.6 pg (25.7-33.7); MEAN CELL VOLUME 92.9 fl (80-96); MEAN PLT VOLUME 7.9 fl (7.5-11.1); PLATELET COUNT 316 10^3/uL (134-434); RBC 3.48 M/mm3 (4.00-5.60); RDW 14.7 % (11.9-15.9)
[2021-09-23] MEDS: CELECOXIB 200 MG CAPSULE PO SCH ×2 (10:17→22:00)
[2021-09-23 12:27] LABS: CALCIUM 8.7 mg/dl (8.5-10); CREATININE 0.7 mg/dl (0.55-1.3); MAGNESIUM 1.7 mg/dL (1.8-2.4)
[2021-09-23] MEDS ORDERED: CHOLECALCIFEROL (VIT D3) 1,000 UNIT (25 MCG) TABLET PO ONE (12:42)
[2021-09-23] MEDS ORDERED: MAGNESIUM SULF 50% (8.12 MEQ/2 ML-1 GM VIAL) IVPB ONE (13:15)
[2021-09-23] MEDS: LACTATED RINGERS SOLUTION 1,000 ML IV SCH (23:29)
[2021-09-24] MEDS ORDERED: oxyCODONE HCL 5 MG TABLET PO PRN (04:47)
[2021-09-24] MEDS: oxyCODONE HCL 5 MG TABLET PO PRN ×5 (05:02→22:10)
[2021-09-24 08:08] LABS: CALCIUM 8.7 mg/dl (8.5-10); CREATININE 0.7 mg/dl (0.55-1.3); MAGNESIUM 1.8 mg/dL (1.8-2.4)
[2021-09-24] MEDS: CELECOXIB 200 MG CAPSULE PO SCH ×2 (09:07→21:16)
[2021-09-24] MEDS: PANTOPRAZOLE 40 MG TABLET PO SCH (09:07)
[2021-09-24] MEDS: ASPIRIN COATED 81 MG TABLET.EC PO SCH ×2 (09:07→21:16)
[2021-09-24] MEDS: SENNOSIDES/DOCUSATE COMBO (SENNA PLUS) TABLET (UD) PO SCH ×2 (09:07→21:16)
[2021-09-24] MEDS: DOCUSATE SODIUM 100 MG CAPSULE (FP) PO SCH ×2 (09:07→21:16)
[2021-09-24] MEDS: LISINOPRIL 20 MG TABLET PO SCH (09:07)
[2021-09-24 09:08] LABS: BASO % 0.7 % (0-2.0); EOS % 3.4 % (0-4.5); HEMATOCRIT 27.2 % (35.4-49); HEMOGLOBIN 9.4 GM/dL (11.7-16.9); LYMPH % 19.7 % (8-40); MCH 32.2 pg (25.7-33.7); MCHC 34.7 g/dl (32.0-35.9); MEAN CELL VOLUME 92.7 fl (80-96); MEAN PLT VOLUME 7.5 fl (7.5-11.1); MONO % 8.6 % (3.8-10.2); NEUT % 67.6 % (42.8-82.8); PLATELET COUNT 291 10^3/uL (134-434); RBC 2.93 M/mm3 (4.00-5.60); RDW 14.2 % (11.9-15.9); WHITE BLOOD COUNT 6.1 K/mm3 (4.0-10.0)
[2021-09-24] MEDS: amLODIPine BESYLATE 10 MG TABLET (FP) PO SCH (09:08)
[2021-09-25] MEDS: oxyCODONE HCL 5 MG TABLET PO PRN ×4 (02:34→12:50)
[2021-09-25] MEDS: LACTATED RINGERS SOLUTION 1,000 ML IV SCH (06:26)
[2021-09-25 08:03] LABS: CALCIUM 9.2 mg/dl (8.5-10); CREATININE 0.8 mg/dl (0.55-1.3)
[2021-09-25 08:51] VITALS: BP 116/67; PULSE 81; TEMP 98.2
[2021-09-25] MEDS: ASPIRIN COATED 81 MG TABLET.EC PO SCH (09:10)
[2021-09-25] MEDS: DOCUSATE SODIUM 100 MG CAPSULE (FP) PO SCH (09:10)
[2021-09-25] MEDS: SENNOSIDES/DOCUSATE COMBO (SENNA PLUS) TABLET (UD) PO SCH (09:10)
[2021-09-25] MEDS: PANTOPRAZOLE 40 MG TABLET PO SCH (09:10)
[2021-09-25] MEDS: CELECOXIB 200 MG CAPSULE PO SCH (09:10)
[2021-09-25] MEDS: amLODIPine BESYLATE 10 MG TABLET (FP) PO SCH (09:10)
[2021-09-25] MEDS: LISINOPRIL 20 MG TABLET PO SCH (09:10)
[2021-09-25 09:51] LABS: BASO % 0.8 % (0-2.0); EOS % 3.5 % (0-4.5); HEMATOCRIT 31.1 % (35.4-49); HEMOGLOBIN 10.5 GM/dL (11.7-16.9); LYMPH % 27.8 % (8-40); MCH 31.6 pg (25.7-33.7); MCHC 33.7 g/dl (32.0-35.9); MEAN CELL VOLUME 93.8 fl (80-96); MEAN PLT VOLUME 7.3 fl (7.5-11.1); MONO % 8.5 % (3.8-10.2); NEUT % 59.4 % (42.8-82.8); PLATELET COUNT 390 10^3/uL (134-434); RBC 3.31 M/mm3 (4.00-5.60); WHITE BLOOD COUNT 6.9 K/mm3 (4.0-10.0)
[2021-09-25 10:21] LABS: MAGNESIUM 1.9 mg/dL (1.8-2.4)
[2021-09-25 12:24] LABS: CALCIUM 8.9 mg/dl (8.5-10); CREATININE 0.8 mg/dl (0.55-1.3); MAGNESIUM 1.8 mg/dL (1.8-2.4)
== END 2021-09-25 14:02 | disposition home or self-care (01) | DRG 481 ==
LOC: FM/S 08:29
PROVIDERS: ADMIT Orthopaedic Surgery Orthopaedic Surgery of the Spine; ATTEND Nurse Practitioner Acute Care
PROC: 0QR Lower Bones, Replacement (ICD-10-PCS; 2021-09-20)
PROC: 0SBB0ZZ Excision of Left Hip Joint, Open Approach (ICD-10-PCS; 2021-09-20)
PROC: 0JQM0ZZ Repair Left Upper Leg Subcutaneous Tissue and Fascia, Open Approach (ICD-10-PCS; 2021-09-20)
PROC: 0SWB09Z Revision of Liner in Left Hip Joint, Open Approach (ICD-10-PCS; principal; 2021-09-20 14:35)
PROC: 30233N1 Transfusion of Nonautologous Red Blood Cells into Peripheral Vein, Percutaneous Approach (ICD-10-PCS; 2021-09-22)
DX: T84.011A Broken internal left hip prosthesis, initial encounter (principal); D62 Acute posthemorrhagic anemia; E87.1 Hypo-osmolality and hyponatremia; I10 Essential (primary) hypertension; E78.5 Hyperlipidemia, unspecified; Y83.9 Surgical procedure, unspecified as the cause of abnormal reaction of the patient, or of later complication, without mention of misadventure at the time of the procedure
CPT/HCPCS: 36415; 36430; 36511; 73502-TC-LT-FY; 80048; 83735; 85025; 85027; 86850; 86900; 86901; 86922; 94760; 97010-GP; 97116-GP; 97162-GP; J1644; P9038; P9058

== ENCOUNTER 2022-06-08 16:20 | Emergency (ER) | payer OTHER, MEDICARE ==
[2022-06-08 16:43] VITALS: TEMP 97.8; BMI 27.8
[2022-06-08] MEDS ORDERED: PROPOFOL 200 MG/20 ML VIAL IVPUSH ONE ×3 (17:07→17:40)
[2022-06-08] MEDS ORDERED: PROPOFOL 20 ML ONE (17:08)
[2022-06-08] MEDS ORDERED: KETAMINE HCL 500 MG/10 ML VIAL ONE (17:08)
[2022-06-08] MEDS ORDERED: KETAMINE HCL 200 MG/20 ML VIAL IVPUSH ONE ×2 (17:09→17:38)
[2022-06-08 17:54] VITALS: BP 156/91; PULSE 76; RESP 14
[2022-06-08 18:16] LABS: BASO % 0.4 % (0-2.0); EOS % 0.3 % (0-4.5); HEMATOCRIT 43.7 % (35.4-49); HEMOGLOBIN 14.4 GM/dL (11.7-16.9); LYMPH % 10.6 % (8-40); MCH 31.5 pg (25.7-33.7); MEAN CELL VOLUME 95.5 fl (80-96); MEAN PLT VOLUME 7.3 fl (7.5-11.1); MONO % 6.8 % (3.8-10.2); NEUT % 81.9 % (42.8-82.8); PLATELET COUNT 373 10^3/uL (134-434); RBC 4.58 M/mm3 (4.00-5.60); WHITE BLOOD COUNT 8.6 K/mm3 (4.0-10.0)
[2022-06-08 18:38] LABS: BLOOD UREA NITROGEN 20.8 mg/dL (7-18); CALCIUM 9.8 mg/dL (8.5-10.1)
[2022-06-08 18:39] LABS: ALBUMIN 3.9 g/dl (3.4-5.0)
[2022-06-08 18:42] LABS: CREATININE 0.9 mg/dL (0.55-1.3)
[2022-06-08 18:43] LABS: BILIRUBIN,TOTAL 0.4 mg/dL (0.2-1); TOT PROT 7.4 g/dl (6.4-8.2)
== END 2022-06-08 18:56 | disposition home or self-care (01) ==
LOC: JER 16:20
PROC: 0SS9XZZ Reposition Right Hip Joint, External Approach (ICD-10-PCS; principal; 2022-06-08)
PROC: 3E033GC Introduction of Other Therapeutic Substance into Peripheral Vein, Percutaneous Approach (ICD-10-PCS; 2022-06-08)
PROC: 3E033GC Introduction of Other Therapeutic Substance into Peripheral Vein, Percutaneous Approach (ICD-10-PCS; 2022-06-08)
DX: T84.020A Dislocation of internal right hip prosthesis, initial encounter (principal)
CPT/HCPCS: 36415; 72170-TC-FY; 73502-TC-RT-FY; 80053; 85025; 93005; 93010; 99285-25

== ENCOUNTER 2023-01-23 06:16 | Day surgery (SDC) | payer OTHER, MEDICARE ==
[2023-01-07 12:07] VITALS: BMI 27.8
[2023-01-23] MEDS ORDERED: LIDOCAINE HCL 2% (20ML MULTI-DOSE VIAL) ONE (07:09)
[2023-01-23] MEDS ORDERED: MIDAZOLAM HCL 2 MG/2 ML SINGLE DOSE VIAL ONE ×2 (07:17→07:38)
[2023-01-23] MEDS ORDERED: PROPOFOL 20 ML ONE (07:17)
[2023-01-23] MEDS ORDERED: ONDANSETRON 4 MG/2 ML VIAL ONE (07:43)
[2023-01-23] MEDS ORDERED: ceFAZolin SODIUM 1 GM VIAL ONE (07:43)
[2023-01-23] MEDS ORDERED: DEXAMETHASONE SOD PHOSPHATE 4 MG/1 ML VIAL ONE (07:43)
[2023-01-23 08:17] VITALS: BP 130/81; PULSE 70; RESP 16; TEMP 97.5
== END 2023-01-23 08:44 | disposition home or self-care (01) ==
LOC: FASU 06:16
PROVIDERS: ATTEND Orthopaedic Surgery Hand Surgery
PROC: 01N50ZZ Release Median Nerve, Open Approach (ICD-10-PCS; principal; 2023-01-23 07:51)
DX: G56.02 Carpal tunnel syndrome, left upper limb (principal)